=== PATIENT | male | born 1950 | race Caucasian/White ===

== ENCOUNTER 2017-03-25 09:55 | Emergency (ER) | payer OTHER ==
[~2017-03-25] VITALS: Ht 180.3 cm; Wt 78.0 kg
[2017-03-25 09:58] VITALS: BP 146/96; PULSE 130; RESP 20; TEMP 98.7; O2SAT 95
[2017-03-25 10:15] VITALS: BP 126/83; PULSE 119; RESP 19; TEMP 99; O2SAT 97
[2017-03-25 10:28] VITALS: BP 126/83; PULSE 112; RESP 16; TEMP 99; O2SAT 97
[2017-03-25] MEDS ORDERED: SODIUM CHLORIDE 0.9% FLUSH 10 ML FLUSH IV FLUSH PRN (10:30)
[2017-03-25 10:32] LABS: AUTOMATED NEUTROPHIL # 7.4 TH/MM3 (1.8-7.7); BASOPHIL # 0.1 TH/MM3 (0-0.2); BASOPHIL % 0.6 % (0.0-2.0); EOSINOPHIL # 0.2 TH/MM3 (0-0.4); EOSINOPHIL % 1.9 % (0.0-4.0); HEMATOCRIT 30.6 % (39.0-51.0); HEMOGLOBIN 9.6 GM/DL (13.0-17.0); LYMPH % 13.5 % (9.0-44.0); LYMPHOCYTE # 1.4 TH/MM3 (1.0-4.8); MEAN CELL VOLUME 73.5 FL (80.0-100.0); MEAN CORPUSCULAR HGB CONC 31.3 % (32.0-36.0); MONO % 11.4 % (0.0-8.0); MONOCYTE # 1.2 TH/MM3 (0-0.9); NEUT % 72.6 % (16.0-70.0); PLATELET COUNT 226 TH/MM3 (150-450); RED BLOOD COUNT 4.17 MIL/MM3 (4.50-5.90); RED CELL DISTRIBUTION WIDTH 21.1 % (11.6-17.2); WHITE BLOOD COUNT 10.1 TH/MM3 (4.0-11.0)
[2017-03-25 10:42] LABS: INTERNATIONAL NORMALIZED RATIO 1.8 RATIO; PROTHROMBIN TIME - PATIENT 18.1 SEC (9.8-11.6)
[2017-03-25] MEDS ORDERED: LORazepam 2 MG/ML VIAL IV PUSH ONE (10:45)
[2017-03-25 10:49] LABS: ALBUMIN 2.4 GM/DL (3.4-5.0); AST (GOT) 102 U/L (15-37); BICARBONATE 26.4 MEQ/L (21.0-32.0); BLOOD UREA NITROGEN 4 MG/DL (7-18); CALCIUM 7.8 MG/DL (8.5-10.1); CHLORIDE 99 MEQ/L (98-107); CREATININE 0.72 MG/DL (0.60-1.30); GLOMERULAR FILTRATION RATE 110 ML/MIN (>89); GLUCOSE,RANDOM 114 MG/DL (74-106); SODIUM (NA) 136 MEQ/L (136-145)
[2017-03-25 10:52] LABS: ALKALINE PHOSPHATASE 394 U/L (45-117); ALT (GPT) 23 U/L (12-78); TOTAL BILIRUBIN ADULT 2.3 MG/DL (0.2-1.0); TOTAL PROTEIN 6.7 GM/DL (6.4-8.2)
[2017-03-25 12:30] VITALS: BP 144/68; PULSE 104; RESP 16; O2SAT 96
[2017-03-25] MEDS ORDERED: IOHEXOL 350 MG/ML 10 ML VIAL (for RAD DIAG) IVCONTRAST ONE (12:35)
--- NOTE | 2017-03-25 12:52 | RADRPT ---
EXAM DATE/TIME: 03/25/2017 12:08 [place] COMPARISON: No previous studies available for comparison. INDICATIONS : Abdominal pain IV CONTRAST: 94 cc Omnipaque 350 (iohexol) IV ORAL CONTRAST: No oral contrast ingested. RADIATION DOSE: 8.24 CTDIvol (mGy) MEDICAL HISTORY : Hernia. SURGICAL HISTORY : Cholecystectomy. ENCOUNTER: Initial ACUITY: 1 month PAIN SCALE: 6/10 LOCATION: Abdomen TECHNIQUE: Volumetric scanning of the abdomen and pelvis was performed. Using automated exposure control and ad justment of the mA and/or kV according to patient size, radiation dose was kept as low as reasonably achievable to obtain optimal diagnostic quality images. DICOM format image data is available electro nically for review and comparison. FINDINGS: Right hemidiaphragm is elevated with compressive atelectasis at the right lung base. There is diffuse heterogeneity in the liver with decreased attenuation. Findings are characteristic o f steatosis with likely hepatocellular dysfunction. Spleen, adrenals, kidneys and pancreas unremarkable. Previous cholecystectomy. There is moderate asci josette. Fluid extends into patent inguinal canals bilaterally. Moderate-sized hiatal hernia. Colonic div erticulosis without diverticulitis. CONCLUSION: 1. Heterogeneous liver with fatty infiltration most characteristic of diffuse hepatocellular dysfunct ion associated with moderate ascites. Ascites extends into the inguinal canals bilaterally. 2. Colonic diverticulosis without evidence for diverticulitis. No bowel obstruction. No free air. 3. Elevated right hemidiaphragm with compressive atelectasis at the right lung base. Trace right pleu ral fluid. Braulio Tee MD on March 25, 2017 at 12:47 Board Certified Radiologist. This report was verified electronically.
[2017-03-25] MEDS ORDERED: SPIR100T PO (14:00)
--- NOTE | 2017-03-25 14:00 | PD ---
HPI Chief Complaint: Abdominal Pain Time Seen by Provider: 10:11 Travel History International Travel<30 days: No Contact w/Intl Traveler<30days: No Traveled to known affect area: No History of Present Illness HPI This is a 66-year-old male who has a history of alcohol abuse who presents to the emergency department with 6 months of increasing abdominal distention, constant, moderate severity associated with swelling in his groin and bruising on his arms and legs. He has insurance and has a primary care doctor appointment in 2 weeks became today because he was concerned and wanted to get checked out sooner. He denies any fevers or chills, denies any vomiting and denies any diarrhea. He denies any abdominal pain. PFSH Past Medical History Medical History: Denies Significant Hx Tetanus Vaccination: Unknown Influenza Vaccination: No Past Surgical History Abdominal Surgery: Yes (hernia) Cholecystectomy: Yes Other Surgery: Yes (back of head) Social History Alcohol Use: Yes (daily states a few glasses of something a day) Tobacco Use: No Substance Use: Yes (opiates) Allergies-Medications (Allergen,Severity, Reaction): Coded Allergies: No Known Allergies (Unverified , 03/25/17) Reported Meds & Prescriptions Reported Meds & Active Scripts Active No Active Prescriptions or Reported Medications Review of Systems Except as stated in HPI: all other systems reviewed are Neg Physical Exam Narrative GENERAL: Cachectic, ill-appearing SKIN: Purpura left upper extremity, spider telangiectasias on the face and chest HEAD: Atraumatic. Normocephalic. EYES: Pupils equal and round. No injection or drainage. ENT: Moist mucous membranes NECK: Trachea midline. CARDIOVASCULAR: Regular rate and rhythm. No murmur appreciated. 2+ pitting edema in the bilateral lower extremities. RESPIRATORY: Clear to auscultation. Breath sounds equal bilaterally. GASTROINTESTINAL: Abdomen soft, distended with fluid wave and hepatomegaly MUSCULOSKELETAL: No obvious deformities. NEUROLOGICAL: Awake and alert. No obvious cranial nerve deficits. Moving all extremities. PSYCHIATRIC: Appropriate mood and affect; insight and judgment normal. Data Data Last Documented VS Vital Signs Date Time Temp Pulse Resp B/P (MAP) Pulse Ox O2 Delivery O2 Flow Rate FiO2 03/25/17 12:30 104 16 144/68 (93) 96 Room Air 03/25/17 10:28 99.0 Orders Orders Complete Blood Count With Diff (03/25/17 10:21) Comprehensive Metabolic Panel (03/25/17 10:21) Prothrombin Time / Inr (Pt) (03/25/17 10:21) Act Partial Throm Time (Ptt) (03/25/17 10:21) Ct Abd/Pel W Iv Contrast(Rout) (03/25/17 10:21) Iv Access Insert/Monitor (03/25/17 10:21) Ecg Monitoring (03/25/17 10:21) Oximetry (03/25/17 10:21) Sodium Chloride 0.9% Flush (Ns Flush) (03/25/17 10:30) Electrocardiogram (03/25/17 ) Lorazepam Inj (Ativan Inj) (03/25/17 10:45) Iohexol 350 Inj (Omnipaque 350 Inj) (03/25/17 12:35) Labs Laboratory Tests Test 03/25/17 10:25 White Blood Count 10.1 TH/MM3 Red Blood Count 4.17 MIL/MM3 Hemoglobin 9.6 GM/DL Hematocrit 30.6 % Mean Corpuscular Volume 73.5 FL Mean Corpuscular Hemoglobin 23.0 PG Mean Corpuscular Hemoglobin Concent 31.3 % Red Cell Distribution Width 21.1 % Platelet Count 226 TH/MM3 Mean Platelet Volume 8.0 FL Neutrophils (%) (Auto) 72.6 % Lymphocytes (%) (Auto) 13.5 % Monocytes (%) (Auto) 11.4 % Eosinophils (%) (Auto) 1.9 % Basophils (%) (Auto) 0.6 % Neutrophils # (Auto) 7.4 TH/MM3 Lymphocytes # (Auto) 1.4 TH/MM3 Monocytes # (Auto) 1.2 TH/MM3 Eosinophils # (Auto) 0.2 TH/MM3 Basophils # (Auto) 0.1 TH/MM3 CBC Comment DIFF FINAL Differential Comment Prothrombin Time 18.1 SEC Prothromb Time International Ratio 1.8 RATIO Activated Partial Thromboplast Time 38.0 SEC Blood Urea Nitrogen 4 MG/DL Creatinine 0.72 MG/DL Random Glucose 114 MG/DL Total Protein 6.7 GM/DL Albumin 2.4 GM/DL Calcium Level 7.8 MG/DL Alkaline Phosphatase 394 U/L Aspartate Amino Transf (AST/SGOT) 102 U/L Alanine Aminotransferase (ALT/SGPT) 23 U/L Total Bilirubin 2.3 MG/DL Sodium Level 136 MEQ/L Potassium Level 3.6 MEQ/L Chloride Level 99 MEQ/L Carbon Dioxide Level 26.4 MEQ/L Anion Gap 11 MEQ/L Estimat Glomerular Filtration Rate 110 ML/MIN MDM Medical Decision Making Medical Screen Exam Complete: Yes Emergency Medical Condition: Yes Interpretation(s) Afebrile, tachycardic, hypertensive Anemia Alkaline phosphatase is 390 Total bilirubin is 2.3 INR is 1.8 APTT is 38 Differential Diagnosis Alcoholic cirrhosis, hepatitis, fatty liver, hepatocellular carcinoma Narrative Course This is a 66-year-old male who presents to the emergency department with abdominal distention and increasing rashes on his skin. Patient has multiple stigmata consistent with cirrhosis. Labs are consistent with cirrhosis with a total bilirubin of 2.[address] abdomen and pelvis demonstrates heterogenous liver with fatty infiltration and moderate ascites. My impression is this all has been going on for a long time. Patient drinks daily and this is likely related to alcoholic cirrhosis. I think he requires outpatient follow -up with a primary care physician and a GI physician. He was counseled on alcohol cessation and was referred to outpatient services. Diagnosis Primary Impression: Cirrhosis Qualified Codes: K74.60 - Unspecified cirrhosis of liver Patient Instructions: General Instructions Additional Instructions: If you develop severe or worsening abdominal pain, fever>100.4, persistent vomiting or inability to eat or drink return to the emergency department immediately. Follow up with your primary care physician in 1-2 days for a check-up. Med/Other Pt SpecificInfo: Prescription(s) given Scripts Spironolactone (Spironolactone) 100 Mg Tab 100 MG PO DAILY, #30 TAB 0 Refills Prov: Macrina Moreira MD 03/25/17 Disposition: 01 DISCHARGE HOME Condition: Stable Macrina Moreira MD Mar 25, 2017 14:00
[2017-03-25 14:12] VITALS: BP 112/65
--- NOTE | 2017-03-28 00:08 | EKG ---
Date Performed: 03/25/2017 Time Performed: 10:52:38 PTAGE: 66 years EKG: SINUS TACHYCARDIA LOW QRS VOLTAGE IN EXTREMITY LEADS ST DEVIATION AND MODERATE T-WAVE ABNOR MALITY, CONSIDER ANTERIOR ISCHEMIA ABNORMAL ECG NO PREVIOUS TRACING DOCTOR: Ngozi Meier Interpretating Date/Time 03/28/2017 00:07:42
== END 2017-03-25 14:18 | disposition home or self-care (01) ==
LOC: NEPE 09:55
DX: K74.60 Unspecified cirrhosis of liver (principal); K57.90 Diverticulosis of intestine, part unspecified, without perforation or abscess without bleeding; F10.20 Alcohol dependence, uncomplicated; R94.31 Abnormal electrocardiogram [ECG] [EKG]; Z90.49 Acquired absence of other specified parts of digestive tract
CPT/HCPCS: 74177; 80053; 85025; 85610; 85730; 93005; 96374; 99285; J2060; Q9967